=== PATIENT | male | born 1970 | race African-American/Black ===

== ENCOUNTER 2018-08-26 09:29 | Outpatient (CLI) | payer OTHER ==
--- NOTE | 2018-08-26 11:15 | XRay Report ---
AP AND LATERAL CERVICAL SPINE: History: Pain. Moderate disc space narrowing with anterior and posterior spurring is identified at C5-6. The remaining levels are within normal limits. The posterior elements are unremarkable. No evidence for fracture, subluxation or bone lesion. IMPRESSION: Moderate degenerative disc disease at C5-6.
--- NOTE | 2018-08-26 11:16 | XRay Report ---
RIGHT SHOULDER, 3 VIEWS: HISTORY: right shoulder pain. Normal bone mineralization. No acute osseous injury or joint pathology is detected. The soft tissues are unremarkable. IMPRESSION: Right shoulder within normal limits.
== END 2018-08-26 09:30 | disposition home or self-care (01) ==
LOC: XRAY 09:29
PROVIDERS: ATTEND Internal Medicine
DX: M50.322 Other cervical disc degeneration at C5-C6 level (principal); M48.02 Spinal stenosis, cervical region; M25.511 Pain in right shoulder
CPT/HCPCS: 72040